=== PATIENT | female | born 1945 | race Caucasian/White ===

== ENCOUNTER 2017-09-16 10:48 | Day surgery (SDC) | payer MEDICARE, OTHER ==
[~2017-09-16] VITALS: Ht 162.6 cm; Wt 70.0 kg
[~2017-09-16 10:48] MED LIST: COZAAR50 MG PO; HYDROCHLOROTHIA25 MG PO; LIPITOR10 MG PO; VITAMIN D2000 UNIT PO
--- NOTE | 2017-09-16 12:36 | NUR ---
09/16/17 1236 Mala Morrison 1222 PT CARE RESUMED, PT ASLEEP AND VSS. REPORTS FROM RNS. RESP EVEN AND UNLABORED. 1228 PT WOKE TO TICTILE STIMULI AND DENIES PAIN. PT REPORTS WANTING TO REMAIN IN THE PRONE POSITION. PT BACK TO SLEEP. O2 DECREASED TO 2L VIA NC.
== END 2017-09-16 13:10 | disposition home or self-care (01) ==
LOC: DS 10:48 → OPS 10:48 → DS 12:00 → OPS 13:10
PROVIDERS: Specialist
PROC: 079T3ZX Drainage of Bone Marrow, Percutaneous Approach, Diagnostic (ICD-10-PCS; 2017-09-16)
PROC: 07DR3ZX Extraction of Iliac Bone Marrow, Percutaneous Approach, Diagnostic (ICD-10-PCS; principal; 2017-09-16 12:00)
DX: D75.1 Secondary polycythemia (principal); I10 Essential (primary) hypertension; E78.5 Hyperlipidemia, unspecified; M19.90 Unspecified osteoarthritis, unspecified site; D86.9 Sarcoidosis, unspecified; Z79.899 Other long term (current) drug therapy
CPT/HCPCS: 85025; 99152; J2250; J3010; J7120

== ENCOUNTER 2020-10-25 11:09 | Emergency (ER) | payer MEDICARE, OTHER ==
[~2020-10-25] VITALS: Ht 162.6 cm; Wt 68.0 kg
[2020-10-25] MEDS ORDERED: ALENDRONATE SOD70 MG PO (11:22)
--- NOTE | 2020-10-25 18:57 | EKG ---
[facility] [address] [facility] [place] [address] Signed Normal sinus rhythm Possible Left atrial enlargement Borderline ECG No previous ECGs available Confirmed by GERMAN SMART MD ([id number] on 10/25/2020 6:57:33 PM Electronically Signed By: GERMAN SMART MD 10/25/201856 PATIENT NAME: IRIS SINGER Electrocardiogram DATE OF : 47 PHYSICIAN: GERMAN SMART MD REPORT #: [id number] REPORT IS CONFIDENTIAL AND NOT TO BE RELEASED WITHOUT AUTHORIZATION
== END 2020-10-25 13:12 | disposition home or self-care (01) ==
LOC: ED 11:09
DX: H81.12 Benign paroxysmal vertigo, left ear (principal); I10 Essential (primary) hypertension; Z79.899 Other long term (current) drug therapy
CPT/HCPCS: 93005; 93010; 99283-25

== ENCOUNTER 2024-01-21 13:28 | Emergency (ER) | payer OTHER, MEDICARE ==
[~2024-01-21] VITALS: Ht 162.6 cm; Wt 62.9 kg
[~2024-01-21 13:28] MED LIST changes: +ALENDRONATE SOD70 MG PO
[2024-01-21] MEDS ORDERED: ACETAMINOPHEN 500 MG TAB PO ONE (14:00)
[2024-01-21] MEDS ORDERED: OXYCODONE/APAP 5/325 TAB PO ONE (15:00)
[2024-01-21] MEDS ORDERED: PERCOCET 5-3251 EACH PO (15:16)
[2024-01-21 15:39] VITALS: BP 145/65
== END 2024-01-21 15:41 | disposition home or self-care (01) ==
LOC: ED 13:28
DX: S52.592A Other fractures of lower end of left radius, initial encounter for closed fracture (principal); I10 Essential (primary) hypertension; Z79.899 Other long term (current) drug therapy; W01.0XXA Fall on same level from slipping, tripping and stumbling without subsequent striking against object, initial encounter
CPT/HCPCS: 73110; 99283; A9270